=== PATIENT | female | born 1985 | race Caucasian/White ===

== ENCOUNTER 2017-01-10 15:33 | Emergency (ER) | payer OTHER ==
--- NOTE | 2017-01-10 17:30 | DIAGNOSTIC IMAGING REPORT ---
PROCEDURE: CT ABDOMEN/PELVIS W/O CONTRAST INDICATION: Right flank pain and hematuria, initial encounter TECHNIQUE: Noncontrast axial images were obtained of the entire abdomen and pelvis with sagittal and coronal reformations. COMPARISON: CT abdomen/pelvis 09/15/2016. FINDINGS: ABDOMEN: Single punctate nonobstructing calculus in each kidney. There is mild right hydronephrosis and normal right ureter suggestive of a recently passed calculus. Lung base are clear. Heart size is normal. Liver, gallbladder, pancreas, spleen, adrenal glands and aorta are normal. Large amount of stool throughout the large bowel. Otherwise nonspecific bowel gas pattern. PELVIS: Appendix not identified. Normal bladder. IUD in place. 2.2 cm right ovarian cyst. Trace free fluid the pelvis. Bones are unremarkable. IMPRESSION: 1. Single punctate nonobstructing calculus in each kidney with mild right hydronephrosis which may indicate a recently passed calculus 2. Obstipation 3. IUD in place 4. 2.2 cm right ovarian cyst with trace free fluid in the pelvis 5. Results discussed with Dr. Guallpa All CT scans at this facility use dose modulation, iterative reconstruction, and/or weight-based dosing when appropriate to reduce radiation dose to as low as reasonably achievable.
--- NOTE | 2017-01-10 18:27 | ED NURSING NOTES ---
Clinical Report - Nurses [facility] [place] [address] 01/10/2017 15:33 Patient: TANYA KELLEY TRIAGE Triage time 16:07. Acuity: LEVEL 3. Chief Complaint: FLANK PAIN. 16:07 01/10/17. 16:07 01/10/17. Alert. --16:11 Mason Carty R.N. 16:07 01/10/17. BP: 125/77. HR: 85. RR: 20. O2 saturation: 100% on room air. Temp: 98.1 F (oral). Pain level now: 08/29. --16:11 Mason Carty R.N. Weight: 52.1 kg stated. Height/Length: 59 inches Per Patient. BMI: 23.2. --16:07 Mason Carty R.N. Medications PROzac Oral 20 mg, daily. --16:09 Mason Carty R.N. Hydrocodone-Acetaminophen Oral 5 mg, as needed. Naproxen Oral. --16:10 Mason Carty R.N. Baclofen External. --16:10 Mason Carty R.N. HydrOXYzine HCl Oral. --16:10 Mason Carty R.N. Medication/allergy information source: the patient. --16:11 Mason Carty R.N. Allergies Sulfa Antibiotics. --16:10 Mason Carty R.N. History Arrived by private vehicle. Historian: patient. Accompanied by family. Primary physician ([facility]). 16:07 01/10/17. This started yesterday. 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 PAST MEDICAL HX: Last normal menstrual period- "Irregular"-IUD. Immunizations not up to date. SOCIAL HX: Current every day light tobacco smoker (cigarette)- less than 1/2 a pack per day. Occasional alcohol use. History of occasional drug use. No recent travel. No infectious disease exposure. No known contact with a sick individual. ABUSE ASSESSMENT: No report of abuse. FALL RISK ASSESSMENT: Fall risk assessment completed. No fall risk identified. NUTRITIONAL RISK ASSESSMENT: The nutritional risk assessment revealed no deficiencies. FUNCTIONAL ASSESSMENT: Functional assessment: no impairments noted. LEARNING NEEDS ASSESSMENT: The learning needs assessment revealed no barriers. SKIN INTEGRITY ASSESSMENT: Skin integrity risk assessment completed. No skin integrity risk identified. --16:11 Mason Carty R.N. PROBLEMS: Chronic pain. Abscess. Sinus Problems. Ear Infection. Prior Nosebleeds. Facial Cellulitis. Neck Pain. Hyperhydrosis disorder. Abdominal Pain. Ovarian Cyst. Endometritis. Tonsillitis. . Gastroesophageal Reflux Disease. Gastritis. Gastroenteritis. Vomiting. Diarrhea. Chest Wall Pain. Pleurisy. LNMP - Last Normal Menstrual Period. --16:10 Mason Carty R.N. ADDITIONAL SURGERIES: . Mirror-dry procedure. --16:10 Mason Carty R.N. Assessment 16:07 01/10/17. --16:11 Mason Carty R.N. Interventions 16:01/10/17. 16:01/10/17. ID and allergy band on patient. To treatment room. --16:11 Mason Carty R.N. PHYSICAL ASSESSMENT 16:01/10/17. Ambulatory to room. GENERAL / NEURO / PSYCH: Appears in pain. RESPIRATORY: Respirations not labored. CVS: Capillary refill less than 2 seconds. SKIN: Skin is warm and dry. --16:11 Mason Carty R.N. NURSING PROGRESS NOTES 16:01/10/17. The plan of care for this patient has been created. Patient gowned. Head of bed elevated. Reassurance given. Two patient identifiers checked. Call light placed in reach. Side rails up x 2. Bed placed in lowest position. Brakes of bed on. Brakes of chair on. --16:11 Mason Carty R.N. 16:01/10/17. Patient ready for evaluation- chart flagged and notification provided. --16:11 Mason Carty R.N. 16:16 01/10/2017 One (1) unsuccessful IV access attempt including the right antecubital space. Applied bandaid and manual pressure. --16:27 Lor Hernandez R.N. 16:22 01/10/2017 Site #1 started via IV in the left antecubital space with an 20g angiocath; one attempt. Blood drawn: rainbow set. Labeled in the presence of the patient and sent to the lab. Saline lock flushed with 10 mL saline. --16:22 Mason Carty R.N. 17:01 01/10/2017 Toradol IVP 30 mg given over 2 minute(s) via site #1. Allergies verified and confirmed 5 rights. IV patency established. IV site checked: no pain, redness, or swelling. IV flushed thoroughly pre- and post-medication administration. IVP given by RN. --17:01 Mason Carty R.N. 17:01/10/2017 Zofran (Ondansetron HCl) IVP 4 mg given over 2 minute(s) via site #1. Allergies verified and confirmed 5 rights. IV patency established. IV site checked: no pain, redness, or swelling. IV flushed thoroughly pre- and post-medication administration. IVP given by RN. --17:02 Mason Carty R.N. 17:03 01/10/17. --17:03 Mason Carty R.N. 17:02 01/10/17. BP: 113/72. HR: 79. RR: 12. O2 saturation: 99% on room air. --17:03 Mason Carty R.N. 18:27 01/10/17. --18:27 Mason Carty R.N. 18:27 01/10/17. BP: 134/72. HR: 82. RR: 16. O2 saturation: 100% on room air. --18:27 Mason Carty R.N. DISPOSITION / DISCHARGE 18:35 01/10/17. Condition at departure: improved. The goals identified in the patient's plan of care were met. No learning barriers present. Discharge instructions provided and reviewed with the patient and parent. Reviewed warnings. Reviewed medication(s). Treatments reviewed. Patient verbalized understanding. Written instructions provided in Swedish. The patient was discharged by the physician. She was discharged home and accompanied by design tech. She left the Emergency Department ambulatory and via private vehicle. Physician Specialist driving. FALL RISK ASSESSMENT: Fall risk assessment completed. No fall risk identified. --18:35 Mason Carty R.N. 18:35 01/10/17. BP: 112/72. HR: 82. RR: 12. O2 saturation: 99% on room air. --18:35 Mason Carty R.N. 18:35 01/10/17. Departure time: 18:35. --18:35 Mason Carty R.N. Locked/Released at 01/10/2017 18:40 by Mason Carty R.N.
--- NOTE | 2017-01-10 18:27 | ED ORDER SUMMARY ---
..... Patient: TANYA KELLEY OrderSheet [facility] VisitID: [id number] [address] [place] [address] 31y, F Registration Date/Time: 01/10/2017 ORDER SHEET Weight: 52.1 kg (stated) Allergies: Sulfa Antibiotics GENERAL ORDERS: UA-Culture if indicated Urgent (16:12 01/10/2017 JBoardley R.N. per protocol) (Ack 16:18 Florence) (16:22 JBoardley R.N.) Urine Urgent (16:12 01/10/2017 JBoardley R.N. per protocol) (Ack 16:18 Florence) (16:22 JBoardley R.N.) CBC w Diff Urgent (16:22 01/10/2017 JBoardley R.N. per protocol) (16:22 JBoardley R.N.) CMP Urgent (16:22 01/10/2017 JBoardley R.N. per protocol) (16:22 JBoardley R.N.) CT Abd/Pel wo Cont Urgent (16:57 01/10/2017 Genaro Klein) (Ack 17:04 Florence) (18:02 Nevaeh) MEDICATION ORDERS: IV FLUIDS: IV Saline Lock (16:22 01/10/2017 JBoardley R.N. per protocol) (16:22 JBoardley R.N.) Toradol IV 30 mg (NOW) (16:58 01/10/2017 Genaro Klein) (Ack 16:59 JBoardley R.N.) (17:01 JBoardley R.N.) Zofran IV 4 mg (NOW) (17:01 01/10/2017 JBoardley R.N. per protocol) (17:02 JBoardley R.N.) ORDER SHEET NOTES: [Electronically signed by Mason Carty R.N. (18:40 01/10/2017)] [Electronically signed by Linden Guallpa Dr. (21:49 01/11/2017)] [Electronically locked/signed by Mason Carty R.N. (18:40 01/10/2017)]
--- NOTE | 2017-01-10 18:27 | ED CLINICAL REPORT ---
Clinical Report - Physicians/Mid Levels [facility] [address] [place] [address] 01/10/2017 15:33 Patient: TANYA KELLEY Time Seen: 16:47; initial patient contact. Arrived- By private vehicle. Historian- patient. HISTORY OF PRESENT ILLNESS Chief Complaint: FLANK PAIN. At its maximum, severity described as moderate. When seen in the E.D., severity described as moderate. Modifying factors. Not worsened by anything. Not relieved by anything. It is described as cramping and it is described as located in the right flank and radiating to the groin. This started today and is still present. It was abrupt in onset and has been waxing/waning. The patient has had nausea and vomiting. No diarrhea. Similar symptoms previously: None. Recent medical care: Not recently seen/assessed. REVIEW OF SYSTEMS No constipation, difficulty with urination, pain with urination, urinary frequency or fever. No chills. All systems otherwise negative, except as recorded above. PAST HISTORY Chronic pain. Abscess. Sinus Problems. Ear Infection. Prior Nosebleeds. Facial Cellulitis. Neck Pain. Hyperhydrosis disorder. Abdominal Pain. Ovarian Cyst. Endometritis. Tonsillitis. . Gastroesophageal Reflux Disease. Gastritis. Gastroenteritis. Vomiting. Diarrhea. Chest Wall Pain. Pleurisy. SURGERIES: . Mirror-dry procedure. SOCIAL HISTORY Current every day smoker. ADDITIONAL NOTES The nursing notes have been reviewed with agreement regarding the chief complaint, PMH and patient medications and allergies. PHYSICAL EXAM Vital Signs: 01/10/2017 16:07 BP: 125/77. HR: 85. RR: 20. O2 saturation: 100%. Temp: 98.1 F. Pain level now: 1010. Have been reviewed as normal. Appearance: Alert. Oriented X3. Appears to be in pain. Eyes: No scleral icterus. ENT: Dry mucous membranes present. CVS: Normal heart rate and rhythm. Heart sounds normal. Respiratory: No respiratory distress. Breath sounds normal. Abdomen: Soft. Moderate tenderness in the right side of the abdomen with guarding present. No rebound tenderness or Vega's, obturator or psoas sign present. Bowel sounds normal. No organomegaly. No mass. Back: Moderate CVA tenderness on the right. Skin: Normal skin color. Neuro: Oriented X 3. LABS, X-RAYS, AND EKG Abdominal CT: 1. Single punctate nonobstructing calculus in each kidney with mild right hydronephrosis which may indicate a recently passed calculus 2. Obstipation 3. IUD in place 4. 2.2 cm right ovarian cyst with trace free fluid in the pelvis. Study type: renal stone evaluation. Abdominal CT performed without contrast. Prior studies were not available for comparison. The study was interpreted by the radiologist and discussed with the radiologist. Laboratory Tests: UA-Culture if indicated: (ALIREZA: 01/10/2017 16:04) ( [facility] 01/10/2017 16:27) Final results Test Result Flag Units (Reference) URINE COLOR YELLOW URINE APPEARANCE CLEAR URINE GLUCOSE NEGATIVE (NEGATIVE) URINE BILIRUBIN NEGATIVE (NEGATIVE) URINE KETONE NEGATIVE (NEGATIVE) URINE SPECIFIC GRAVITY 1.010 (1.010-1.030) URINE PH 6.0 (5.0-8.0) URINE PROTEIN TRACE (NEGATIVE) URINE UROBILINOGEN 0.2 EU/dL (0.2-1.0) URINE NITRITE NEGATIVE (NEGATIVE) URINE BLOOD 2+ (NEGATIVE) URINE LEUK ESTERASE POSITIVE (NEGATIVE) URINE RBC 10-25 rbc/hpf (0-1) URINE WBC 25-50 wbc/hpf (0-1) URINE EPITHELIAL CELLS 3-5 EPI/hpf (0-5) URINE BACTERIA MODERATE (2+ TO 3+) (NONE SEEN) URINE COMMENT CULTURE INDICATED URINE CULTURES ARE SET-UP BASED ON THE FOLLOWING CRITERIA:POSITIVE NITRITEPOSITIVE LEUKOCYTE ESTERASEGREATER THAN 10 WHITE BLOOD CELLSMODERATE (2+) OR GREATER BACTERIA Urine: (ALIREZA: 01/10/2017 16:04) ( [facility] 01/10/2017 16:19) Final results Test Result Flag Units (Reference) URINE NEGATIVE CBC w Diff: (ALIREZA: 01/10/2017 16:15) ( [facility] 01/10/2017 16:36) Final results Test Result Flag Units (Reference) WHITE BLOOD COUNT 13.3 H K/uL (4.5-11.5) RED BLOOD COUNT 4.56 M/uL (4.00-5.20) HEMOGLOBIN 14.2 gm/dL (12.0-16.0) HEMATOCRIT 42.1 % (36.0-46.0) MEAN CELL VOLUME 92 fL (80-100) MEAN CORPUSCULAR HGB 31 pg (26-34) MEAN CORPUSCULAR HGB CONC 34 g/dL (31-37) RED CELL DISTRIBUTION WIDTH 13.4 % (11.6-14.8) PLATELET COUNT 252 K/uL (150-400) NEUTROPHIL % 74.3 % (50-75) LYMPH % 16.9 L % (25-40) MONO % 7.2 % (3-14) EOSINOPHIL % 1.4 % (0-4) BASOPHIL % 0.2 % (0-2) CMP: (ALIREZA: 01/10/2017 16:15) ( MsgRcvd 01/10/2017 16:45) Final results Test Result Flag Units (Reference) GLUCOSE 91 mg/dL (70-110) BUN 7 mg/dL (7-18) CREATININE 0.7 mg/dL (0.6-1.3) Estimated GFR >60 mL/min Estimated GFR- >60 mL/min Note: Persistent reduction over 3 months in eGFR<60 mL/min/1.73 m2 defines CKD. Patients with eGFR values>=60 mL/min/1.73 m2 may also have CKD if evidence ofpersistent proteinuria. Additional information may be foundat www.kidney.org. SODIUM 140 mmol/L (136-145) POTASSIUM 4.0 mmol/L (3.5-5.1) CHLORIDE 102 mmol/L (98-107) CARBON DIOXIDE 29 mmol/L (21-32) CALCIUM 8.7 mg/dL (8.5-10.1) TOTAL PROTEIN 7.3 g/dL (6.4-8.2) ALBUMIN 3.7 g/dL (3.3-5.0) BILIRUBIN, TOTAL 0.6 mg/dL (0.0-1.0) ALKALINE PHOSPHATASE 60 U/L (46-116) AST (SGOT) 14 L U/L (15-37) ALT (SGPT) 28 U/L (12-78) . PROGRESS AND PROCEDURES Disposition: Discharged home in good and improved condition. Condition: good. CLINICAL IMPRESSION Acute right flank pain. Acute urinary tract infection with cystitis. INSTRUCTIONS Your Current Medications: CONTINUE TAKING THE FOLLOWING MEDICATIONS: Baclofen External. Hydrocodone-Acetaminophen Oral : 5 mg, prn. HydrOXYzine HCl Oral. Naproxen Oral. PROzac Oral : 20 mg daily. Prescription Medications: Hydrocodone/APAP 5mg / 325mg: take 1 orally every 6 hours as needed for pain. Dispense fifteen (15). No refill. Levofloxacin 500 mg: take 1 tab orally every day for 7 days. No refills. Follow-up: Follow up with your doctor in about two days. Call for an appointment. Screening today revealed the patient's blood pressure to be in the pre-hypertensive range. The patient should follow up with a primary care provider for blood pressure management. (Electronically signed by Linden Guallpa Dr. 01/11/2017 21:49)
--- NOTE | 2017-01-10 18:27 | ED NURSING NOTES ---
Clinical Report - Nurses [facility] [address] [place] [address] 01/10/2017 15:33 Patient: TANYA KELLEY TRIAGE Triage time 16:07. Acuity: LEVEL 3. Chief Complaint: FLANK PAIN. 16:07 01/10/17. 16:07 01/10/17. Alert. --16:11 Mason Carty R.N. 16:07 01/10/17. BP: 125/77. HR: 85. RR: 20. O2 saturation: 100% on room air. Temp: 98.1 F (oral). Pain level now: 08/29. --16:11 Mason Carty R.N. Weight: 52.1 kg stated. Height/Length: 59 inches Per Patient. BMI: 23.2. --16:07 Mason Carty R.N. Medications PROzac Oral 20 mg, daily. --16:09 Mason Carty R.N. Hydrocodone-Acetaminophen Oral 5 mg, as needed. Naproxen Oral. --16:10 Mason Carty R.N. Baclofen External. --16:10 Mason Carty R.N. HydrOXYzine HCl Oral. --16:10 Mason Carty R.N. Medication/allergy information source: the patient. --16:11 Mason Carty R.N. Allergies Sulfa Antibiotics. --16:10 Mason Carty R.N. History Arrived by private vehicle. Historian: patient. Accompanied by family. Primary physician ([facility]). 16:07 01/10/17. This started yesterday. 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 PAST MEDICAL HX: Last normal menstrual period- "Irregular"-IUD. Immunizations not up to date. SOCIAL HX: Current every day light tobacco smoker (cigarette)- less than 1/2 a pack per day. Occasional alcohol use. History of occasional drug use. No recent travel. No infectious disease exposure. No known contact with a sick individual. ABUSE ASSESSMENT: No report of abuse. FALL RISK ASSESSMENT: Fall risk assessment completed. No fall risk identified. NUTRITIONAL RISK ASSESSMENT: The nutritional risk assessment revealed no deficiencies. FUNCTIONAL ASSESSMENT: Functional assessment: no impairments noted. LEARNING NEEDS ASSESSMENT: The learning needs assessment revealed no barriers. SKIN INTEGRITY ASSESSMENT: Skin integrity risk assessment completed. No skin integrity risk identified. --16:11 Mason Carty R.N. PROBLEMS: Chronic pain. Abscess. Sinus Problems. Ear Infection. Prior Nosebleeds. Facial Cellulitis. Neck Pain. Hyperhydrosis disorder. Abdominal Pain. Ovarian Cyst. Endometritis. Tonsillitis. . Gastroesophageal Reflux Disease. Gastritis. Gastroenteritis. Vomiting. Diarrhea. Chest Wall Pain. Pleurisy. LNMP - Last Normal Menstrual Period. --16:10 Mason Carty R.N. ADDITIONAL SURGERIES: . Mirror-dry procedure. --16:10 Mason Carty R.N. Assessment 16:07 01/10/17. --16:11 Mason Carty R.N. Interventions 16:01/10/17. 16:01/10/17. ID and allergy band on patient. To treatment room. --16:11 Mason Carty R.N. PHYSICAL ASSESSMENT 16:01/10/17. Ambulatory to room. GENERAL / NEURO / PSYCH: Appears in pain. RESPIRATORY: Respirations not labored. CVS: Capillary refill less than 2 seconds. SKIN: Skin is warm and dry. --16:11 Mason Carty R.N. NURSING PROGRESS NOTES 16:01/10/17. The plan of care for this patient has been created. Patient gowned. Head of bed elevated. Reassurance given. Two patient identifiers checked. Call light placed in reach. Side rails up x 2. Bed placed in lowest position. Brakes of bed on. Brakes of chair on. --16:11 Mason Carty R.N. 16:01/10/17. Patient ready for evaluation- chart flagged and notification provided. --16:11 Mason Carty R.N. 16:16 01/10/2017 One (1) unsuccessful IV access attempt including the right antecubital space. Applied bandaid and manual pressure. --16:27 Lor Hernandez R.N. 16:22 01/10/2017 Site #1 started via IV in the left antecubital space with an 20g angiocath; one attempt. Blood drawn: rainbow set. Labeled in the presence of the patient and sent to the lab. Saline lock flushed with 10 mL saline. --16:22 Mason Carty R.N. 17:01 01/10/2017 Toradol IVP 30 mg given over 2 minute(s) via site #1. Allergies verified and confirmed 5 rights. IV patency established. IV site checked: no pain, redness, or swelling. IV flushed thoroughly pre- and post-medication administration. IVP given by RN. --17:01 Mason Carty R.N. 17:01/10/2017 Zofran (Ondansetron HCl) IVP 4 mg given over 2 minute(s) via site #1. Allergies verified and confirmed 5 rights. IV patency established. IV site checked: no pain, redness, or swelling. IV flushed thoroughly pre- and post-medication administration. IVP given by RN. --17:02 Mason Carty R.N. 17:03 01/10/17. --17:03 Mason Carty R.N. 17:02 01/10/17. BP: 113/72. HR: 79. RR: 12. O2 saturation: 99% on room air. --17:03 Mason Carty R.N. 18:27 01/10/17. --18:27 Mason Carty R.N. 18:27 01/10/17. BP: 134/72. HR: 82. RR: 16. O2 saturation: 100% on room air. --18:27 Mason Carty R.N. DISPOSITION / DISCHARGE 18:35 01/10/17. Condition at departure: improved. The goals identified in the patient's plan of care were met. No learning barriers present. Discharge instructions provided and reviewed with the patient and parent. Reviewed warnings. Reviewed medication(s). Treatments reviewed. Patient verbalized understanding. Written instructions provided in Frisian. The patient was discharged by the physician. She was discharged home and accompanied by well surveying engineer. She left the Emergency Department ambulatory and via private vehicle. Senior Research Scientist driving. FALL RISK ASSESSMENT: Fall risk assessment completed. No fall risk identified. --18:35 Mason Carty R.N. 18:35 01/10/17. BP: 112/72. HR: 82. RR: 12. O2 saturation: 99% on room air. --18:35 Mason Carty R.N. 18:35 01/10/17. Departure time: 18:35. --18:35 Mason Carty R.N. Locked/Released at 01/10/2017 18:40 by Mason Carty R.N.
--- NOTE | 2017-01-10 18:27 | ED ORDER SUMMARY ---
..... Patient: TANYA KELLEY OrderSheet [facility] VisitID: [id number] [address] [place] [address] 31y, F Registration Date/Time: 01/10/2017 ORDER SHEET Weight: 52.1 kg (stated) Allergies: Sulfa Antibiotics GENERAL ORDERS: UA-Culture if indicated Urgent (16:12 01/10/2017 JBoardley R.N. per protocol) (Ack 16:18 Florence) (16:22 JBoardley R.N.) Urine Urgent (16:12 01/10/2017 JBoardley R.N. per protocol) (Ack 16:18 Florence) (16:22 JBoardley R.N.) CBC w Diff Urgent (16:22 01/10/2017 JBoardley R.N. per protocol) (16:22 JBoardley R.N.) CMP Urgent (16:22 01/10/2017 JBoardley R.N. per protocol) (16:22 JBoardley R.N.) CT Abd/Pel wo Cont Urgent (16:57 01/10/2017 Genaro Klein) (Ack 17:04 Florence) (18:02 Nevaeh) MEDICATION ORDERS: IV FLUIDS: IV Saline Lock (16:22 01/10/2017 JBoardley R.N. per protocol) (16:22 JBoardley R.N.) Toradol IV 30 mg (NOW) (16:58 01/10/2017 Genaro Klein) (Ack 16:59 JBoardley R.N.) (17:01 JBoardley R.N.) Zofran IV 4 mg (NOW) (17:01 01/10/2017 JBoardley R.N. per protocol) (17:02 JBoardley R.N.) ORDER SHEET NOTES: [Electronically signed by Mason Carty R.N. (18:40 01/10/2017)] [Electronically signed by Linden Guallpa Dr. (21:49 01/11/2017)] [Electronically locked/signed by Mason Carty R.N. (18:40 01/10/2017)]
--- NOTE | 2017-01-11 21:50 | ED MED RECONCILIATION SUMMARY ---
Patient: TANYA KELLEY Medication Reconciliation Report [facility] VisitID: [id number] [address] [place] [address] 31y, F Registration Date/Time: 01/10/2017 Weight: 52.1 kg Height/Length: 59 in. BMI: 23.2 ALLERGIES: Sulfa Antibiotics The patient's Home Medications are listed below: CONTINUE TAKING THE FOLLOWING MEDICATIONS: Baclofen External Hydrocodone-Acetaminophen Oral 5 mg HydrOXYzine HCl Oral Naproxen Oral PROzac Oral 20 mg, daily The source(s) of the original Home Medication information: patient The following Medications were given to the patient in the Emergency Department: Toradol [IVP] IVP 30 mg, administered: 01/10/2017 5:01:00 PM Zofran [IVP] IVP 4 mg, administered: 01/10/2017 5:01:00 PM The following Medications were prescribed to the patient: Hydrocodone/APAP 5mg / 325mg: take 1 orally every 6 hours as needed for pain. Dispense fifteen (15). No refill. -- Linden Guallpa Dr. Levofloxacin 500 mg: take 1 tab orally every day for 7 days. No refills. -- Linden Guallpa Dr.
--- NOTE | 2017-01-11 21:50 | ED MED RECONCILIATION SUMMARY ---
Patient: TANYA KELLEY Medication Reconciliation Report [facility] VisitID: [id number] [address] [place] [address] 31y, F Registration Date/Time: 01/10/2017 Weight: 52.1 kg Height/Length: 59 in. BMI: 23.2 ALLERGIES: Sulfa Antibiotics The patient's Home Medications are listed below: CONTINUE TAKING THE FOLLOWING MEDICATIONS: Baclofen External Hydrocodone-Acetaminophen Oral 5 mg HydrOXYzine HCl Oral Naproxen Oral PROzac Oral 20 mg, daily The source(s) of the original Home Medication information: patient The following Medications were given to the patient in the Emergency Department: Toradol [IVP] IVP 30 mg, administered: 01/10/2017 5:01:00 PM Zofran [IVP] IVP 4 mg, administered: 01/10/2017 5:01:00 PM The following Medications were prescribed to the patient: Hydrocodone/APAP 5mg / 325mg: take 1 orally every 6 hours as needed for pain. Dispense fifteen (15). No refill. -- Linden Guallpa Dr. Levofloxacin 500 mg: take 1 tab orally every day for 7 days. No refills. -- Linden Guallpa Dr.
--- NOTE | 2017-01-11 21:50 | ED DISCHARGE INSTRUCTIONS ---
Patient: TANYA KELLEY General Instructions [facility] VisitID: [id number] [address] [place] [address] 31y, F Registration Date/Time: 01/10/2017 Acute right flank pain. Acute urinary tract infection with cystitis. INSTRUCTIONS Your Current Medications: CONTINUE TAKING THE FOLLOWING MEDICATIONS: Baclofen External. Hydrocodone-Acetaminophen Oral : 5 mg, prn. HydrOXYzine HCl Oral. Naproxen Oral. PROzac Oral : 20 mg daily. Prescription Medications: Hydrocodone/APAP 5mg / 325mg: take 1 orally every 6 hours as needed for pain. Dispense fifteen (15). No refill. Levofloxacin 500 mg: take 1 tab orally every day for 7 days. No refills. Follow-up: Follow up with your doctor in about two days. Call for an appointment. Screening today revealed the patient's blood pressure to be in the pre-hypertensive range. The patient should follow up with a primary care provider for blood pressure management. ADDITIONAL INFORMATION Bladder Infection,Female (Adult) A bladder infection ("cystitis" or "UTI") usually causes a constant urge to urinate and a burning when passing urine. Urine may be cloudy, smelly or dark. There may be pain in the lower abdomen. A bladder infection occurs when bacteria from the vaginal area enter the bladder opening (urethra). This can occur from sexual intercourse, wearing tight clothing, dehydration and other factors. Home Care: Drink lots of fluids (at least 6-8 glasses a day, unless you must restrict fluids for other medical reasons). This will force the medicine into your urinary system and flush the bacteria out of your body. Avoid sexual intercourse until your symptoms are gone. Avoid caffeine, alcohol and spicy foods. These can irritate the bladder. A bladder infection is treated with antibiotics. You may also be given Pyridium (generic = phenazopyridine) to reduce the burning sensation. This medicine will cause your urine to become a bright orange color. The orange urine may stain clothing. You may wear a pad or panty-liner to protect clothing. Preventing Future Infections: Always wipe from front to back after a bowel movement. Keep the genital area clean and dry. Drink plenty of fluids each day to avoid dehydration. Both sexual partners should wash before intercourse. Urinate right after intercourse to flush out the bladder. Wear cotton underwear and cotton-lined panty hose; avoid tight-fitting pants. If you are on control pills and are having frequent bladder infections, discuss with your doctor. Follow Up: Return to this facility or see your doctor if ALL symptoms are not gone after three days of treatment. Get Prompt Medical Attention if any of the following occur: Fever of 100.4F (38C) or higher, or as directed by your healthcare provider No improvement by the third day of treatment Increasing back or abdominal pain Repeated vomiting; unable to keep medicine down Weakness, dizziness or fainting Vaginal discharge Pain, redness or swelling in the labia (outer vaginal area) Hydrocodone Bitartrate, Acetaminophen Oral tablet What is this medicine? ACETAMINOPHEN; HYDROCODONE (a set a HARVINDER nikkie fen; satnam droe KOE done) is a pain reliever. It is used to treat mild to moderate pain. How should I use this medicine? Take this medicine by mouth. Swallow it with a full glass of water. Follow the directions on the prescription label. If the medicine upsets your stomach, take the medicine with food or milk. Do not take more than you are told to take. Talk to your radiology equipment servicer regarding the use of this medicine in children. This medicine is not approved for use in children. What side effects may I notice from receiving this medicine? Side effects that you should report to your doctor or health home care coordinator as soon as possible: allergic reactions like skin rash, itching or hives, swelling of the face, lips, or tongue breathing problems confusion feeling faint or lightheaded, falls stomach pain yellowing of the eyes or skin Side effects that usually do not require medical attention (report to your doctor or health home care coordinator if they continue or are bothersome): nausea, vomiting stomach upset What may interact with this medicine? alcohol antihistamines isoniazid medicines for depression, anxiety, or psychotic disturbances medicines for sleep muscle relaxants naltrexone narcotic medicines (opiates) for pain phenobarbital ritonavir tramadol What if I miss a dose? If you miss a dose, take it as soon as you can. If it is almost time for your next dose, take only that dose. Do not take double or extra doses. Where should I keep my medicine? Keep out of the reach of children. This medicine can be abused. Keep your medicine in a safe place to protect it from theft. Do not share this medicine with anyone. Selling or giving away this medicine is dangerous and against the law. Store at room temperature between 15 and 30 degrees C (59 and 86 degrees F). Protect from light. Keep container tightly closed. Throw away any unused medicine after the expiration date. Discard unused medicine and used packaging carefully. Pets and children can be harmed if they find used or lost packages. What should I tell my health care provider before I take this medicine? They need to know if you have any of these conditions: brain tumor Crohn's disease, inflammatory bowel disease, or ulcerative colitis drink more than 3 alcohol-containing drinks per day drug abuse or addiction head injury heart or circulation problems kidney disease or problems going to the bathroom liver disease lung disease, asthma, or breathing problems an unusual or allergic reaction to acetaminophen, hydrocodone, other opioid analgesics, other medicines, foods, dyes, or preservatives or trying to get breast-feeding What should I watch for while using this medicine? Tell your doctor or health home care coordinator if your pain does not go away, if it gets worse, or if you have new or a different type of pain. You may develop tolerance to the medicine. Tolerance means that you will need a higher dose of the medicine for pain relief. Tolerance is normal and is expected if you take the medicine for a long time. Do not suddenly stop taking your medicine because you may develop a severe reaction. Your body becomes used to the medicine. This does NOT mean you are addicted. Addiction is a behavior related to getting and using a drug for a non-medical reason. If you have pain, you have a medical reason to take pain medicine. Your doctor will tell you how much medicine to take. If your doctor wants you to stop the medicine, the dose will be slowly lowered over time to avoid any side effects. You may get drowsy or dizzy when you first start taking the medicine or change doses. Do not drive, use machinery, or do anything that may be dangerous until you know how the medicine affects you. Stand or sit up slowly. There are different types of narcotic medicines (opiates) for pain. If you take more than one type at the same time, you may have more side effects. Give your health care provider a list of all medicines you use. Your doctor will tell you how much medicine to take. Do not take more medicine than directed. Call emergency for help if you have problems breathing. The medicine will cause constipation. Try to have a bowel movement at least every 2 to 3 days. If you do not have a bowel movement for 3 days, call your doctor or health home care coordinator. Too much acetaminophen can be very dangerous. Do not take Tylenol (acetaminophen) or medicines that contain acetaminophen with this medicine. Many non-prescription medicines contain acetaminophen. Always read the labels carefully. Levofloxacin Oral tablet What is this medicine? LEVOFLOXACIN (aquiles gonzalo ELDER booker) is a quinolone antibiotic. It is used to treat certain kinds of bacterial infections. It will not work for colds, flu, or other viral infections. How should I use this medicine? Take this medicine by mouth with a full glass of water. Follow the directions on the prescription label. This medicine can be taken with or without food. Take your medicine at regular intervals. Do not take your medicine more often than directed. Do not skip doses or stop your medicine early even if you feel better. Do not stop taking except on your doctor's advice. A special MedGuide will be given to you by the pharmacist with each prescription and refill. Be sure to read this information carefully each time. Talk to your radiology equipment servicer regarding the use of this medicine in children. While this drug may be prescribed for children as young as 6 months for selected conditions, precautions do apply. What side effects may I notice from receiving this medicine? Side effects that you should report to your doctor or health home care coordinator as soon as possible: -allergic reactions like skin rash or hives, swelling of the face, lips, or tongue -changes in vision -confusion, nightmares or hallucinations -difficulty breathing -irregular heartbeat, chest pain -joint, muscle or tendon pain -pain or difficulty passing urine -persistent headache with or without blurred vision -redness, blistering, peeling or loosening of the skin, including inside the mouth -seizures -unusual pain, numbness, tingling, or weakness -vaginal irritation, discharge Side effects that usually do not require medical attention (report to your doctor or health home care coordinator if they continue or are bothersome): -diarrhea -dry mouth -headache -stomach upset, nausea -trouble sleeping What may interact with this medicine? Do not take this medicine with any of the following medications: - arsenic trioxide - chloroquine - droperidol - medicines for irregular heart rhythm like amiodarone, disopyramide, dofetilide, flecainide, quinidine, procainamide, sotalol - some medicines for depression or mental problems like phenothiazines, pimozide, and ziprasidone This medicine may also interact with the following medications: - amoxapine -antacids - cisapride - dairy products - didanosine (ddI) buffered tablets or powder - haloperidol - multivitamins -NSAIDS, medicines for pain and inflammation, like ibuprofen or naproxen - retinoid products like tretinoin or isotretinoin - risperidone - some other antibiotics like clarithromycin or erythromycin - sucralfate - theophylline - warfarin What if I miss a dose? If you miss a dose, take it as soon as you remember. If it is almost time for your next dose, take only that dose. Do not take double or extra doses. Where should I keep my medicine? Keep out of the reach of children. Store at room temperature between 15 and 30 degrees C (59 and 86 degrees F). Keep in a tightly closed container. Throw away any unused medicine after the expiration date. What should I tell my health care provider before I take this medicine? They need to know if you have any of these conditions: cerebral disease irregular heartbeat kidney disease seizure disorder an unusual or allergic reaction to levofloxacin, other antibiotics or medicines, foods, dyes, or preservatives or trying to get breast-feeding What should I watch for while using this medicine? Tell your doctor or health home care coordinator if your symptoms do not improve or if they get worse. Drink several glasses of water a day and cut down on drinks that contain caffeine. You must not get dehydrated while taking this medicine. You may get drowsy or dizzy. Do not drive, use machinery, or do anything that needs mental alertness until you know how this medicine affects you. Do not sit or stand up quickly, especially if you are an older patient. This reduces the risk of dizzy or fainting spells. This medicine can make you more sensitive to the sun. Keep out of the sun. If you cannot avoid being in the sun, wear protective clothing and use a sunscreen. Do not use sun lamps or tanning beds/booths. Contact your doctor if you get a sunburn. If you are a diabetic monitor your blood glucose carefully. If you get an unusual reading stop taking this medicine and call your doctor right away. Do not treat diarrhea with [id number] products. Contact your doctor if you have diarrhea that lasts more than 2 days or if the diarrhea is severe and watery. Avoid antacids, calcium, iron, and zinc products for 2 hours before and 2 hours after taking a dose of this medicine. You have been given the following additional information: Bladder Infection, Female (Adult) Hydrocodone Bitartrate, Acetaminophen Oral tablet Levofloxacin Oral tablet (Electronically signed by Linden Guallpa Dr. 01/11/2017 21:49)
--- NOTE | 2017-01-11 21:50 | ED MAR SUMMARY ---
..... Medication Administration Record [facility] [address] [place] [address] Patient: TANYA KELLEY Visit ID: [id number] 31y, F Weight: 52.1 kg Height/Length: 59 in BMI: 23.2 ALLERGIES: Sulfa Antibiotics Given 17:01/10/2017 Mason Carty R.N. Medication Administered: TORADOL [IVP], Dose: 30 mg IVP over 2 minute(s), Site: #1 left AC. Medication Ordered: Toradol IV 30 mg (NOW). Given 17:01/10/2017 Mason Carty R.N. Medication Administered: ZOFRAN [IVP] (ONDANSETRON HCL), Dose: 4 mg IVP over 2 minute(s), Site: #1 left AC. Medication Ordered: Zofran IV 4 mg (NOW).
--- NOTE | 2017-01-11 21:50 | ED MAR SUMMARY ---
..... Medication Administration Record [facility] [address] [place] [address] Patient: TANYA KELLEY Visit ID: [id number] 31y, F Weight: 52.1 kg Height/Length: 59 in BMI: 23.2 ALLERGIES: Sulfa Antibiotics Given 17:01/10/2017 Mason Carty R.N. Medication Administered: TORADOL [IVP], Dose: 30 mg IVP over 2 minute(s), Site: #1 left AC. Medication Ordered: Toradol IV 30 mg (NOW). Given 17:01/10/2017 Mason Carty R.N. Medication Administered: ZOFRAN [IVP] (ONDANSETRON HCL), Dose: 4 mg IVP over 2 minute(s), Site: #1 left AC. Medication Ordered: Zofran IV 4 mg (NOW).
== END 2017-01-10 18:35 | disposition home or self-care (01) ==
LOC: ED SRH 15:33
DX: N30.00 Acute cystitis without hematuria (principal); R10.9 Unspecified abdominal pain; K21.9 Gastro-esophageal reflux disease without esophagitis; F17.210 Nicotine dependence, cigarettes, uncomplicated; Z88.2 Allergy status to sulfonamides
CPT/HCPCS: 90004; 90100; 90148; 90469; 93070; 95059

== ENCOUNTER 2017-03-07 16:35 | Emergency (ER) | payer OTHER ==
--- NOTE | 2017-03-07 16:51 | ED CLINICAL REPORT ---
Clinical Report - Physicians/Mid Levels [facility] [address] [place] [address] 03/07/2017 16:34 Patient: TANYA KELLEY Time Seen: 16:42 Mar 07 2017. Arrived- By private vehicle. Historian- patient. HISTORY OF PRESENT ILLNESS Chief Complaint: DENTAL PAIN. This started 10 [employer]. Pain described as severe. No sore throat, mouth sores or nasal congestion. She has had toothache (left lower). (A fragment of tooth broke about 2 weeks previously. Patient has been experiencing pain. She started her own course of antibiotics amoxicillin and has finished them since. She has had persistent pain. Patient takes Vicodin on a regular basis for nervelike pain, with no complete diagnosis, currently under care of neurologist, has undergone multiple testing as well as physical therapy.). REVIEW OF SYSTEMS No fever, cough or difficulty breathing. All systems otherwise negative, except as recorded above. PAST HISTORY Problems: Dental Caries. UTI - Urinary Tract Infection. Flank Pain. Chronic pain. Abscess. Sinus Problems. Facial Cellulitis. Neck Pain. Hyperhydrosis disorder. Abdominal Pain. Ovarian Cyst. Endometritis. Tonsillitis. . Gastroesophageal Reflux Disease. Gastritis. Gastroenteritis. Vomiting. Diarrhea. Chest Wall Pain. Pleurisy. LNMP - Last Normal Menstrual Period. Additional Surgeries: . Mirror-dry procedure. Medications: Hydrocodone-Acetaminophen Oral 5 mg, as needed. HydrOXYzine HCl Oral. Naproxen Oral. PROzac Oral 20 mg, daily. Baclofen External. Allergies: Sulfa Antibiotics. SOCIAL HISTORY Current every day smoker. Alcohol use. History of drug use: marijuana. Not an IV drug user. ADDITIONAL NOTES The nursing notes have been reviewed. PHYSICAL EXAM Vital Signs: 03/07/2017 16:38 BP: 130/81. HR: 67. RR: 18. O2 saturation: 99%. Temp: 97.8 F. Pain level now: 10/10. Appearance: Alert. Head: Normal external inspection. Eyes: Conjunctivae and eyelids normal. ENT: Nose normal. Pharynx normal. No peritonsillar mass or purulent nasal discharge. (Dental tenderness and pain on the left side.). Neck: Trachea midline. No adenopathy. CVS: Normal heart rate and rhythm. Heart sounds normal. Rhythm normal. No extra heart sounds. Respiratory: No respiratory distress. Breath sounds normal. Abdomen: Soft. No guarding or organomegaly. Skin: Normal skin color. PROGRESS AND PROCEDURES Course of Care: No signs of Donnell angina. No signs of facial swelling. Patient does have a history of murmurs on her shoulder, with a recent positive culture. We will start with clindamycin. Patient to follow-up with a dentist. No signs of palpable abscess. No uvular shift. 03/07/2017 16:38 BP: 130/81. HR: 67. RR: 18. O2 saturation: 99%. Temp: 97.8 F. Pain level now: 10. Patient is stable. Patient/family counseled. Disposition: Discharged. CLINICAL IMPRESSION Severe dental pain. INSTRUCTIONS Drink plenty of fluids. (continue taking your pain meds/ motrin if tolerated ice on outside salt water rinses follow up with dentist in next 10 days). Prescription Medications: Cleocin 300 mg: take 1 capsule orally every 8 hours for 10 days. No refill. Substitution is permissible. Follow-up: Follow up with a specialist. (Electronically signed by Liat Corado P.A.-C 03/07/2017 17:07)
--- NOTE | 2017-03-07 16:51 | ED CLINICAL REPORT ---
Clinical Report - Physicians/Mid Levels [facility] [address] [place] [address] 03/07/2017 16:34 Patient: TANYA KELLEY Time Seen: 16:42 Mar 07 2017. Arrived- By private vehicle. Historian- patient. HISTORY OF PRESENT ILLNESS Chief Complaint: DENTAL PAIN. This started 10 [employer]CHING [employer]. Pain described as severe. No sore throat, mouth sores or nasal congestion. She has had toothache (left lower). (A fragment of tooth broke about 2 weeks previously. Patient has been experiencing pain. She started her own course of antibiotics amoxicillin and has finished them since. She has had persistent pain. Patient takes Vicodin on a regular basis for nervelike pain, with no complete diagnosis, currently under care of neurologist, has undergone multiple testing as well as physical therapy.). REVIEW OF SYSTEMS No fever, cough or difficulty breathing. All systems otherwise negative, except as recorded above. PAST HISTORY Problems: Dental Caries. UTI - Urinary Tract Infection. Flank Pain. Chronic pain. Abscess. Sinus Problems. Facial Cellulitis. Neck Pain. Hyperhydrosis disorder. Abdominal Pain. Ovarian Cyst. Endometritis. Tonsillitis. . Gastroesophageal Reflux Disease. Gastritis. Gastroenteritis. Vomiting. Diarrhea. Chest Wall Pain. Pleurisy. LNMP - Last Normal Menstrual Period. Additional Surgeries: . Mirror-dry procedure. Medications: Hydrocodone-Acetaminophen Oral 5 mg, as needed. HydrOXYzine HCl Oral. Naproxen Oral. PROzac Oral 20 mg, daily. Baclofen External. Allergies: Sulfa Antibiotics. SOCIAL HISTORY Current every day smoker. Alcohol use. History of drug use: marijuana. Not an IV drug user. ADDITIONAL NOTES The nursing notes have been reviewed. PHYSICAL EXAM Vital Signs: 03/07/2017 16:38 BP: 130/81. HR: 67. RR: 18. O2 saturation: 99%. Temp: 97.8 F. Pain level now: 10/10. Appearance: Alert. Head: Normal external inspection. Eyes: Conjunctivae and eyelids normal. ENT: Nose normal. Pharynx normal. No peritonsillar mass or purulent nasal discharge. (Dental tenderness and pain on the left side.). Neck: Trachea midline. No adenopathy. CVS: Normal heart rate and rhythm. Heart sounds normal. Rhythm normal. No extra heart sounds. Respiratory: No respiratory distress. Breath sounds normal. Abdomen: Soft. No guarding or organomegaly. Skin: Normal skin color. PROGRESS AND PROCEDURES Course of Care: No signs of Donnell angina. No signs of facial swelling. Patient does have a history of murmurs on her shoulder, with a recent positive culture. We will start with clindamycin. Patient to follow-up with a dentist. No signs of palpable abscess. No uvular shift. 03/07/2017 16:38 BP: 130/81. HR: 67. RR: 18. O2 saturation: 99%. Temp: 97.8 F. Pain level now: 10. Patient is stable. Patient/family counseled. Disposition: Discharged. CLINICAL IMPRESSION Severe dental pain. INSTRUCTIONS Drink plenty of fluids. (continue taking your pain meds/ motrin if tolerated ice on outside salt water rinses follow up with dentist in next 10 days). Prescription Medications: Cleocin 300 mg: take 1 capsule orally every 8 hours for 10 days. No refill. Substitution is permissible. Follow-up: Follow up with a specialist. (Electronically signed by Liat Corado P.A.-C 03/07/2017 17:07)
--- NOTE | 2017-03-07 16:52 | ED NURSING NOTES ---
Clinical Report - Nurses [facility] [address] [place] [place] [address] 03/07/2017 16:34 Patient: TANYA KELLEY TRIAGE Triage time 16:38 Mar 07 2017. Acuity: LEVEL 4. Chief Complaint: LEFT LOWER TOOTHACHE. 16:44 03/07/17. SEPSIS SCREEN: Sepsis Screen. Negative (no infection suspected/documented). SHAHIDA COMA SCORE: [place] Coma Scale: 15- eyes open spontaneously (4); best verbal response- oriented x 4 (5); best motor response- obeys commands (6). --16:44 Yuki Sanchez R.N. 16:38 03/07/17. BP: 130/81 (regular adult cuff) taken on the left arm, while sitting. HR: 67. RR: 18. O2 saturation: 99% on room air. Temp: 97.8 F (oral). Pain level now: 08/29. --16:44 Yuki Sanchez R.N. Weight: 53 kg stated. Height/Length: 59 inches Per Patient. BMI: 23.6. --16:41 Yuki Sanchez R.N. Medications Baclofen External. --16:43 Yuki Sanchez R.N. Hydrocodone-Acetaminophen Oral 5 mg, as needed. HydrOXYzine HCl Oral. Naproxen Oral. PROzac Oral 20 mg, daily. --16:43 Yuki Sanchez R.N. Allergies Sulfa Antibiotics. --16:43 Yuki Sanchez R.N. History Arrived by private vehicle. Historian: patient. Primary physician (Dr Mon). ( Took amoxicillin x 7 ended this couple days ago). Onset. (10 day ago). She has had left-sided facial pain and ear pain. She has had a toothache (left lower molar). 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 PAST MEDICAL HX: Dental caries. SOCIAL HX: Current every day light tobacco smoker- less than 1/2 a pack per day. Occasional alcohol use; consumes wine. History of weekly drug use: marijuana. Recently used drugs days ago. No infectious disease exposure. ABUSE ASSESSMENT: No report of abuse. --16:44 Yuki Sanchez R.N. PROBLEMS: UTI - Urinary Tract Infection. Flank Pain. Chronic pain. Abscess. Sinus Problems. Ear Infection. Prior Nosebleeds. Neck Pain. Hyperhydrosis disorder. Abdominal Pain. Ovarian Cyst. Gastroesophageal Reflux Disease. Gastritis. Gastroenteritis. --16:43 Yuki Sanchez R.N. ADDITIONAL SURGERIES: . Mirror-dry procedure. --16:43 Yuki Sanchez R.N. Interventions ID band on patient. To treatment room. --16:44 Yuki Sanchez R.N. PHYSICAL ASSESSMENT 16:45 03/07/17. Ambulatory to room. GENERAL / NEURO / PSYCH: Alert. Oriented X 4. Appears in pain. HEENT: Pupils equal, round and reactive to light. Pharynx within normal limits. Voice within normal limits. Dental tenderness. Dental decay. Mucous membranes are pink. RESPIRATORY: Respirations not labored. CVS: Capillary refill less than 2 seconds. SKIN: Skin is warm. Normal skin turgor. --16:45 Yuki Sanchez R.N. NURSING PROGRESS NOTES 16:45 03/07/17. The plan of care for this patient has been created. Head of bed elevated. Reassurance given. Two patient identifiers checked. Call light placed in reach. Side rails up x 1. Bed placed in lowest position. Brakes of bed on. Patient ready for evaluation- chart flagged and ED physician notified. --16:45 Yuki Sanchez R.N. 16:54 03/07/2017 Clindamycin PO Capsules 300 mg given. Allergies verified and confirmed 5 rights. --16:54 Yuki Sanchez R.N. DISPOSITION / DISCHARGE 16:57 03/07/17. Condition at departure: unchanged. No learning barriers present. Discharge instructions provided and reviewed with the patient. Reviewed medication(s) side effects, precautions, dosing and course information. Prescription(s) given to the patient. Patient verbalized understanding. Written instructions provided in Ecuadorean. The patient was discharged by the physician. She was discharged home. She left the Emergency Department ambulatory and via private vehicle. Patient driving. --16:57 Yuki Sanchez R.N. 16:55 03/07/17. RR: 18. Pain level now: 08/29. --16:57 Yuki Sanchez R.N. Departure time: 16:57 Mar 07 2017. --16:57 Yuki Sanchez R.N. Locked/Released at 03/07/2017 16:59 by Yuki Sanchez R.N.
--- NOTE | 2017-03-07 16:52 | ED ORDER SUMMARY ---
..... Patient: TANYA KELLEY OrderSheet [facility] VisitID: [id number] [address] [place] [address] 31y, F Registration Date/Time: 03/07/2017 ORDER SHEET Weight: 53.0 kg (stated) Allergies: Sulfa Antibiotics GENERAL ORDERS: MEDICATION ORDERS: Clindamycin PO 300 mg (NOW) (16:50 03/07/2017 Elvira Beaver.ABogdan-Connie) (Ack 16:51 Alethas R.N.) (16:54 Alethas R.N.) IV FLUIDS: ORDER SHEET NOTES: [Electronically signed by Yuki Sanchez R.N. (16:59 03/07/2017)] [Electronically signed by Liat Corado P.A.-C (17:07 03/07/2017)] [Electronically locked/signed by Yuki Sanchez R.N. (16:59 03/07/2017)]
--- NOTE | 2017-03-07 16:52 | ED NURSING NOTES ---
Clinical Report - Nurses [facility] [address] [place] [address] 03/07/2017 16:34 Patient: TANYA KELLEY TRIAGE Triage time 16:38 Mar 07 2017. Acuity: LEVEL 4. Chief Complaint: LEFT LOWER TOOTHACHE. 16:44 03/07/17. SEPSIS SCREEN: Sepsis Screen. Negative (no infection suspected/documented). SHAHIDA COMA SCORE: [place] Coma Scale: 15- eyes open spontaneously (4); best verbal response- oriented x 4 (5); best motor response- obeys commands (6). --16:44 Yuki Sanchez R.N. 16:38 03/07/17. BP: 130/81 (regular adult cuff) taken on the left arm, while sitting. HR: 67. RR: 18. O2 saturation: 99% on room air. Temp: 97.8 F (oral). Pain level now: 08/29. --16:44 Yuki Sanchez R.N. Weight: 53 kg stated. Height/Length: 59 inches Per Patient. BMI: 23.6. --16:41 Yuki Sanchez R.N. Medications Baclofen External. --16:43 Yuki Sanchez R.N. Hydrocodone-Acetaminophen Oral 5 mg, as needed. HydrOXYzine HCl Oral. Naproxen Oral. PROzac Oral 20 mg, daily. --16:43 Yuki Sanchez R.N. Allergies Sulfa Antibiotics. --16:43 Yuki Sanchez R.N. History Arrived by private vehicle. Historian: patient. Primary physician (Dr Mon). ( Took amoxicillin x 7 ended this couple days ago). Onset. (10 day ago). She has had left-sided facial pain and ear pain. She has had a toothache (left lower molar). 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 PAST MEDICAL HX: Dental caries. SOCIAL HX: Current every day light tobacco smoker- less than 1/2 a pack per day. Occasional alcohol use; consumes wine. History of weekly drug use: marijuana. Recently used drugs days ago. No infectious disease exposure. ABUSE ASSESSMENT: No report of abuse. --16:44 Yuki Sanchez R.N. PROBLEMS: UTI - Urinary Tract Infection. Flank Pain. Chronic pain. Abscess. Sinus Problems. Ear Infection. Prior Nosebleeds. Neck Pain. Hyperhydrosis disorder. Abdominal Pain. Ovarian Cyst. Gastroesophageal Reflux Disease. Gastritis. Gastroenteritis. --16:43 Yuki Sanchez R.N. ADDITIONAL SURGERIES: . Mirror-dry procedure. --16:43 Yuki Sanchez R.N. Interventions ID band on patient. To treatment room. --16:44 Yuki Sanchez R.N. PHYSICAL ASSESSMENT 16:45 03/07/17. Ambulatory to room. GENERAL / NEURO / PSYCH: Alert. Oriented X 4. Appears in pain. HEENT: Pupils equal, round and reactive to light. Pharynx within normal limits. Voice within normal limits. Dental tenderness. Dental decay. Mucous membranes are pink. RESPIRATORY: Respirations not labored. CVS: Capillary refill less than 2 seconds. SKIN: Skin is warm. Normal skin turgor. --16:45 Yuki Sanchez R.N. NURSING PROGRESS NOTES 16:45 03/07/17. The plan of care for this patient has been created. Head of bed elevated. Reassurance given. Two patient identifiers checked. Call light placed in reach. Side rails up x 1. Bed placed in lowest position. Brakes of bed on. Patient ready for evaluation- chart flagged and ED physician notified. --16:45 Yuki Sanchez R.N. 16:54 03/07/2017 Clindamycin PO Capsules 300 mg given. Allergies verified and confirmed 5 rights. --16:54 Yuki Sanchez R.N. DISPOSITION / DISCHARGE 16:57 03/07/17. Condition at departure: unchanged. No learning barriers present. Discharge instructions provided and reviewed with the patient. Reviewed medication(s) side effects, precautions, dosing and course information. Prescription(s) given to the patient. Patient verbalized understanding. Written instructions provided in Emirati. The patient was discharged by the physician. She was discharged home. She left the Emergency Department ambulatory and via private vehicle. Patient driving. --16:57 Yuki Sanchez R.N. 16:55 03/07/17. RR: 18. Pain level now: 08/29. --16:57 Yuki Sanchez R.N. Departure time: 16:57 Mar 07 2017. --16:57 Yuki Sanchez R.N. Locked/Released at 03/07/2017 16:59 by Yuki Sanchez R.N.
--- NOTE | 2017-03-07 16:52 | ED ORDER SUMMARY ---
..... Patient: TANYA KELLEY OrderSheet [facility] VisitID: [id number] [address] [place] [address] 31y, F Registration Date/Time: 03/07/2017 ORDER SHEET Weight: 53.0 kg (stated) Allergies: Sulfa Antibiotics GENERAL ORDERS: MEDICATION ORDERS: Clindamycin PO 300 mg (NOW) (16:50 03/07/2017 Elvira Beaver.ABogdan-Connie) (Ack 16:51 Alethas R.N.) (16:54 Alethas R.N.) IV FLUIDS: ORDER SHEET NOTES: [Electronically signed by Yuki Sanchez R.N. (16:59 03/07/2017)] [Electronically signed by Liat Corado P.A.-C (17:07 03/07/2017)] [Electronically locked/signed by Yuki Sanchez R.N. (16:59 03/07/2017)]
--- NOTE | 2017-03-07 17:08 | ED MAR SUMMARY ---
..... Medication Administration Record [facility] [address] [place] [address] Patient: TANYA KELLEY Visit ID: [id number] 31y, F Weight: 53.0 kg Height/Length: 59 in BMI: 23.6 ALLERGIES: Sulfa Antibiotics Given 16:54 03/07/2017 Yuki Sanchez R.N. Medication Administered: CLINDAMYCIN [PO], Dose: 300 mg Capsules PO. Medication Ordered: Clindamycin PO 300 mg (NOW).
--- NOTE | 2017-03-07 17:08 | ED DISCHARGE INSTRUCTIONS ---
Patient: TANYA KELLEY General Instructions [facility] VisitID: [id number] [place] [address] 31y, F Registration Date/Time: 03/07/2017 Severe dental pain. INSTRUCTIONS Drink plenty of fluids. (continue taking your pain meds/ motrin if tolerated ice on outside salt water rinses follow up with dentist in next 10 days). Prescription Medications: Cleocin 300 mg: take 1 capsule orally every 8 hours for 10 days. No refill. Substitution is permissible. Follow-up: Follow up with a specialist. ADDITIONAL INFORMATION Dental Pain A crack or cavity in the tooth, which exposes the sensitive inner area of the tooth can cause tooth pain. An infection in the gum or the root of the tooth can cause pain and swelling. The pain is often made worse by drinking hot or cold fluids, or biting on hard foods. Pain may spread from the tooth to the ear or jaw on the same side. Home Care: Avoid hot and cold foods and liquids since your tooth may be sensitive to temperature changes. If your tooth is chipped or cracked, or if there is a large open cavity, apply OIL OF CLOVES (available isde-elw-ikjzcvk in drug stores) directly to the tooth to reduce pain. Some pharmacies carry an xwhk-dsm-hehrpgl "toothache kit." This contains a paste, which can be applied over the exposed tooth to decrease sensitivity. A cold pack on your jaw over the sore area may help reduce pain. You may use acetaminophen (Tylenol) or ibuprofen (Motrin, Advil) to control pain, unless another medicine was prescribed. [ NOTE: If you have chronic liver or kidney disease or ever had a stomach ulcer or GI bleeding, talk with your doctor before using these medicines.] If you have signs of an infection, an antibiotic will be given. Take it as directed. Follow-Up as directed with a dentist. Your pain may go away with the treatment given. However, only a dentist can fully evaluate and treat the cause and prevent the pain from coming back again. TOOTHACHE IS A SIGN OF DISEASE IN YOUR TOOTH AND SHOULD BE EXAMINED AND TREATED BY A DENTIST. Get Prompt Medical Attention if any of the following occur: Your face becomes swollen or red Pain worsens or spreads to the neck Fever over 100.4 F (38.0 C) Unusual drowsiness; headache or stiff neck; weakness or fainting Pus drains from the tooth Difficulty swallowing or breathing You have been given the following additional information: Dental Pain (Electronically signed by Liat Corado P.A.-C 03/07/2017 17:07)
--- NOTE | 2017-03-07 17:08 | ED MED RECONCILIATION SUMMARY ---
Patient: TANYA KELLEY Medication Reconciliation Report [facility] VisitID: [id number] [address] [place] [address] 31y, F Registration Date/Time: 03/07/2017 Weight: 53.0 kg Height/Length: 59 in. BMI: 23.6 ALLERGIES: Sulfa Antibiotics The patient's Home Medications are listed below: THE FOLLOWING MEDICATIONS NEED TO BE RECONCILED: Baclofen External Hydrocodone-Acetaminophen Oral 5 mg HydrOXYzine HCl Oral Naproxen Oral PROzac Oral 20 mg, daily The source(s) of the original Home Medication information: Not obtained. The following Medications were given to the patient in the Emergency Department: Clindamycin [PO] PO 300 mg, administered: 03/07/2017 4:54:00 PM The following Medications were prescribed to the patient: Cleocin 300 mg: take 1 capsule orally every 8 hours for 10 days. No refill. Substitution is permissible. -- Liat Corado P.A.-C
--- NOTE | 2017-03-07 17:08 | ED MAR SUMMARY ---
..... Medication Administration Record [facility] [address] [place] [address] Patient: TANYA KELLEY Visit ID: [id number] 31y, F Weight: 53.0 kg Height/Length: 59 in BMI: 23.6 ALLERGIES: Sulfa Antibiotics Given 16:54 03/07/2017 Yuki Sanchez R.N. Medication Administered: CLINDAMYCIN [PO], Dose: 300 mg Capsules PO. Medication Ordered: Clindamycin PO 300 mg (NOW).
--- NOTE | 2017-03-07 17:08 | ED MED RECONCILIATION SUMMARY ---
Patient: TANYA KELLEY Medication Reconciliation Report [facility] VisitID: [id number] [address] [place] [address] 31y, F Registration Date/Time: 03/07/2017 Weight: 53.0 kg Height/Length: 59 in. BMI: 23.6 ALLERGIES: Sulfa Antibiotics The patient's Home Medications are listed below: THE FOLLOWING MEDICATIONS NEED TO BE RECONCILED: Baclofen External Hydrocodone-Acetaminophen Oral 5 mg HydrOXYzine HCl Oral Naproxen Oral PROzac Oral 20 mg, daily The source(s) of the original Home Medication information: Not obtained. The following Medications were given to the patient in the Emergency Department: Clindamycin [PO] PO 300 mg, administered: 03/07/2017 4:54:00 PM The following Medications were prescribed to the patient: Cleocin 300 mg: take 1 capsule orally every 8 hours for 10 days. No refill. Substitution is permissible. -- Liat Corado P.A.-C
--- NOTE | 2017-03-07 17:08 | ED DISCHARGE INSTRUCTIONS ---
Patient: TANYA KELLEY General Instructions [facility] VisitID: [id number] [place] [address] 31y, F Registration Date/Time: 03/07/2017 Severe dental pain. INSTRUCTIONS Drink plenty of fluids. (continue taking your pain meds/ motrin if tolerated ice on outside salt water rinses follow up with dentist in next 10 days). Prescription Medications: Cleocin 300 mg: take 1 capsule orally every 8 hours for 10 days. No refill. Substitution is permissible. Follow-up: Follow up with a specialist. ADDITIONAL INFORMATION Dental Pain A crack or cavity in the tooth, which exposes the sensitive inner area of the tooth can cause tooth pain. An infection in the gum or the root of the tooth can cause pain and swelling. The pain is often made worse by drinking hot or cold fluids, or biting on hard foods. Pain may spread from the tooth to the ear or jaw on the same side. Home Care: Avoid hot and cold foods and liquids since your tooth may be sensitive to temperature changes. If your tooth is chipped or cracked, or if there is a large open cavity, apply OIL OF CLOVES (available xnpo-ald-qtinljq in drug stores) directly to the tooth to reduce pain. Some pharmacies carry an huoi-pkk-unkeadj "toothache kit." This contains a paste, which can be applied over the exposed tooth to decrease sensitivity. A cold pack on your jaw over the sore area may help reduce pain. You may use acetaminophen (Tylenol) or ibuprofen (Motrin, Advil) to control pain, unless another medicine was prescribed. [ NOTE: If you have chronic liver or kidney disease or ever had a stomach ulcer or GI bleeding, talk with your doctor before using these medicines.] If you have signs of an infection, an antibiotic will be given. Take it as directed. Follow-Up as directed with a dentist. Your pain may go away with the treatment given. However, only a dentist can fully evaluate and treat the cause and prevent the pain from coming back again. TOOTHACHE IS A SIGN OF DISEASE IN YOUR TOOTH AND SHOULD BE EXAMINED AND TREATED BY A DENTIST. Get Prompt Medical Attention if any of the following occur: Your face becomes swollen or red Pain worsens or spreads to the neck Fever over 100.4 F (38.0 C) Unusual drowsiness; headache or stiff neck; weakness or fainting Pus drains from the tooth Difficulty swallowing or breathing You have been given the following additional information: Dental Pain (Electronically signed by Liat Corado P.A.-C 03/07/2017 17:07)
== END 2017-03-07 17:00 | disposition home or self-care (01) ==
LOC: ED SRH 16:35
DX: K08.89 Other specified disorders of teeth and supporting structures (principal); F17.210 Nicotine dependence, cigarettes, uncomplicated; Z79.899 Other long term (current) drug therapy; Z79.1 Long term (current) use of non-steroidal anti-inflammatories (NSAID); Z88.2 Allergy status to sulfonamides